=== PATIENT | male | born 1965 | race Caucasian/White ===

== ENCOUNTER 2016-10-12 19:34 | Observation (INO) ==
[2016-10-12] MEDS ORDERED: Nitroglycerin 1 INCH/GM PACKET TP ONE (20:54)
--- NOTE | 2016-10-12 20:58 | Emergency Department Note ---
Disposition Clinical Impression: Angina at rest Disposition: Admitted As Inpatient Condition: Good Referrals: John Moran MD [Primary Care Provider] - Forms: ED Satisfaction Letter Time of Disposition: 21:42 Chest Pain HPI - General Chief Complaint: ED Chest Pain Stated Complaint: chest pain Time Seen by Provider: 10/12/16 20:48 Source: patient Limitations: no limitations Vital Signs Reviewed: Yes Nursing Notes Reviewed: Yes - History of Present Illness HPI Narrative: Patient complains of intermittent chest discomfort since yesterday. Patient lower substernal without radiation. No exacerbating factors. Alleviated temporarily by nitroglycerin. Associated nausea and shortness of breath. He has a history of coronary artery disease-7 stents deployed in the past. Most recently he had 3 stents placed at [facility] 2 months ago Pt complaint: chest pain Onset (ago): day(s) Duration: intermittent Onset: during rest Pain Location: substernal Severity: moderate Severity scale (1-10): 5 Quality: aching Pain Radiation: none Improves with: nitroglycerin Worsens with: nothing Associated symptoms: Reports: nausea, dyspnea Treatments prior to arrival chest pain: aspirin, nitroglycerin - Related Data On Oral Contraceptives: No Home Medications Medication Instructions Recorded Confirmed Aspirin Enteric Coated [Aspirin EC] 81 mg PO DAILY 08/11/15 07/15/16 Gabapentin [Neurontin] 300 mg PO TID 08/11/15 07/15/16 Nitroglycerin 0.4 mg SL Q5MIN PRN 08/11/15 07/15/16 Omeprazole [PriLOSEC] 20 mg PO DAILY 08/11/15 07/15/16 Finasteride [Proscar] 5 mg PO DAILY 09/29/15 07/15/16 Fluticasone/Salmeterol [Advair 1 puff IH BID 09/29/15 07/15/16 500-50 Diskus] Hydrochlorothiazide 50 mg PO BID 09/29/15 07/15/16 Lisinopril [Zestril] 40 mg PO BID 09/29/15 07/15/16 Albuterol Sulfate [Ventolin Hfa] 2 puff IH Q4-6H PRN 07/15/16 07/15/16 Amlodipine Besylate 10 mg PO DAILY 07/15/16 07/15/16 Buprenorphine HCl/Naloxone HCl 1 each SL DAILY 07/15/16 07/15/16 [Suboxone 8 mg-2 mg Sl Film] Duloxetine HCl [Cymbalta] 60 mg PO BID 07/15/16 07/15/16 Erythromycin Base [Erythromycin] 500 mg PO BID MDD x10 days 07/15/16 07/15/16 Metoprolol [Lopressor] 100 mg PO BID 07/15/16 07/15/16 Prazosin HCl [Minipress] 10 mg PO DAILY 07/15/16 07/15/16 Rosuvastatin [Crestor] 40 mg PO HS 07/15/16 07/15/16 Allergies Allergy/AdvReac Type Severity Reaction Status Date / Time chlorthalidone Allergy Unknown Unknown Verified 08/11/15 12:52 infliximab [From Remicade] Allergy Unknown Unknown Verified 08/11/15 12:51 All systems ED: reviewed and negative except as stated. Constitutional: Reports: as per HPI Eyes: Reports: as per HPI ENT ED: Reports: as per HPI Cardiovascular: Reports: chest pain Respiratory: Reports: dyspnea Gastrointestinal: Reports: nausea Genitourinary: Reports: as per HPI Musculoskeletal: Reports: as per HPI Integumentary: Reports: as per HPI Neurological: Reports: as per HPI Psychiatric: Reports: as per HPI Endocrine: Reports: as per HPI Hematological/Lymphatic: Reports: as per HPI Allergic/Immunologic: Reports: as per HPI Chest Pain PMH - Past Medical History Medical history: Reports: coronary artery disease, myocardial infarction Surgical history: Reports: angioplasty/stent (2, then repeated in both vessels) Psychiatric history: Reports: no psych history Prior Cardiac Testing/Procedures: Stenting - Social History Smoking Status: Current every day smoker Alcohol use: Reports: occasionally Drug use: Reports: none Physical Exam - General Limitations: no limitations General appearance: alert, in no apparent distress - Head Head exam: atraumatic - Eye Eye exam: Present: normal appearance - ENT ENT exam: normal exam - Neck Neck exam: Present: normal inspection - Chest Chest inspection: Present: normal inspection, symmetric chest wall rise - Respiratory Respiratory exam: Present: normal lung sounds bilaterally - Cardiovascular Cardiovascular exam: Present: regular rate, normal rhythm, normal heart sounds - Abdominal Exam Abdominal exam: Present: soft, Non-Tender - Rectal Exam Rectal exam: Present: deferred - Extremities Exam Extremities exam: Present: normal inspection - Neurological Exam Neurological exam: Present: alert, oriented X3, CN II-XII intact - Psychiatric Psychiatric exam: Present: normal affect, normal mood - Skin Skin exam: Present: warm, dry, intact Course Course Narrative: Patient presents with intermittent chest discomfort since yesterday. He has a known history of coronary artery disease. He does have chest pain so I will apply some nitroglycerin paste. Cardiac workup initiated - Reevaluation(s) Reevaluation #1: Test results discussed with patient and family. Admission to the medicine service requested. Vital Signs Temperature 98.2 F 10/12/16 19:55 Pulse Rate 72 10/12/16 19:55 Respiratory Rate 18 10/12/16 19:55 Blood Pressure 102/62 10/12/16 19:55 O2 Sat by Pulse Oximetry 97 10/12/16 19:55 Temperature 98.2 F 10/12/16 19:55 Pulse Rate 61 10/12/16 21:29 Respiratory Rate 16 10/12/16 21:29 Blood Pressure 115/61 10/12/16 21:29 O2 Sat by Pulse Oximetry 98 10/12/16 21:29 Oxygen Delivery Oxygen Delivery Room Air Chest Pain - Medical Records Medical records reviewed: Yes I reviewed the patient's medical records. Request for patient's cardiac catheter report from [facility] - Lab Data Lab results reviewed: Yes I reviewed the patient's lab results. Result diagrams: 10/12/16 21:07 10/12/16 21:07 Lab Results 10/12/16 10/12/16 10/12/16 Range/Units 21:07 21:07 21:07 WBC 11.0 (4.3-11.1) K/mcL RBC 3.62 L (4.19-5.50) M/mcL Hgb 11.8 L (12.9-16.9) g/dL Hct 34.9 L (37.5-50.1) % MCV 96.4 (83.0-100.0) fL MCH 32.6 (28.0-33.3) pg MCHC 33.8 (31.6-35.5) g/dL RDW 14.9 H (11.5-14.5) % Plt Count 207 (140-400) K/mcL MPV 9.6 (9.4-12.4) fL Immature Gran % 2.1 (0-4) % Seg Neutrophils % 64.0 % Lymphocytes % 19.1 % Monocytes % 10.3 % Eosinophils % 4.1 % Basophils % 0.4 % Neutrophils # 7.0 (1.6-8.9) K/mcL Lymphocytes # 2.1 (0.6-4.6) K/mcL Monocytes # 1.1 (0.0-1.3) K/mcL Eosinophils # 0.5 (0.0-0.6) K/mcL Basophils # 0.0 (0.0-0.2) K/mcL Immature Plt Fraction 2.8 (1.1-6.1) % PT 11.3 (9.4-12.1) Seconds INR 1.0 APTT 37.6 H (26.0-36.0) Seconds Sodium 141 (136-145) mEq/L Potassium 4.5 (3.5-4.5) mEq/L Chloride 110 H (98-109) mEq/L Carbon Dioxide 23 (19-29) mEq/L BUN 22 (8-26) mg/dL Creatinine 1.09 (0.72-1.25) mg/dL Est GFR ( Amer) > 60 (> 60) Est GFR (Non-Af Amer) > 60 (> 60) BUN/Creatinine Ratio 20 (6-26) Glucose 99 (70-99) mg/dL Calculated Osmolality 295 (280-300) Calcium 8.8 (8.6-10.8) mg/dL Total Bilirubin 0.2 (0.2-1.2) mg/dL AST 16 (5-34) Units/L ALT 31 (0-55) Units/L Alkaline Phosphatase 123 (38-126) Units/L Troponin I (0-0.03) ng/mL Serum Total Protein 6.8 (6.0-8.3) g/dL Albumin 3.6 (3.5-5.0) g/dL Globulin 3.2 (2.4-3.5) g/dL Albumin/Globulin Ratio 1.1 (1.1-2.2) 10/12/16 Range/Units 21:07 WBC (4.3-11.1) K/mcL RBC (4.19-5.50) M/mcL Hgb (12.9-16.9) g/dL Hct (37.5-50.1) % MCV (83.0-100.0) fL MCH (28.0-33.3) pg MCHC (31.6-35.5) g/dL RDW (11.5-14.5) % Plt Count (140-400) K/mcL MPV (9.4-12.4) fL Immature Gran % (0-4) % Seg Neutrophils % % Lymphocytes % % Monocytes % % Eosinophils % % Basophils % % Neutrophils # (1.6-8.9) K/mcL Lymphocytes # (0.6-4.6) K/mcL Monocytes # (0.0-1.3) K/mcL Eosinophils # (0.0-0.6) K/mcL Basophils # (0.0-0.2) K/mcL Immature Plt Fraction (1.1-6.1) % PT (9.4-12.1) Seconds INR APTT (26.0-36.0) Seconds Sodium (136-145) mEq/L Potassium (3.5-4.5) mEq/L Chloride (98-109) mEq/L Carbon Dioxide (19-29) mEq/L BUN (8-26) mg/dL Creatinine (0.72-1.25) mg/dL Est GFR ( Amer) (> 60) Est GFR (Non-Af Amer) (> 60) BUN/Creatinine Ratio (6-26) Glucose (70-99) mg/dL Calculated Osmolality (280-300) Calcium (8.6-10.8) mg/dL Total Bilirubin (0.2-1.2) mg/dL AST (5-34) Units/L ALT (0-55) Units/L Alkaline Phosphatase (38-126) Units/L Troponin I 0.01 (0-0.03) ng/mL Serum Total Protein (6.0-8.3) g/dL Albumin (3.5-5.0) g/dL Globulin (2.4-3.5) g/dL Albumin/Globulin Ratio (1.1-2.2) - Radiology Data Radiology results reviewed: Yes I reviewed the patient's radiology results. - EKG Data EKG attestation: Yes I reviewed and interpreted this EKG. EKG results narrative: Normal sinus rhythm 70 beats per minute FL 187 QRS 101 QT/QTC 362/382. Mild ST segment depression in the inferior and lateral leads. No acute changes from study dated 07/15/16
[2016-10-12 21:14] LABS: Basophils % 0.4 %; Eosinophils % 4.1 %; Hematocrit 34.9 % (37.5-50.1); Hemoglobin 11.8 g/dL (12.9-16.9); Immature Granulocytes % 2.1 % (0-4); Immature Platelets 2.8 % (1.1-6.1); Lymphocytes % 19.1 %; Mean Corpuscular HGB Conc 33.8 g/dL (31.6-35.5); Mean Corpuscular Hemoglobin 32.6 pg (28.0-33.3); Mean Corpuscular Volume 96.4 fL (83.0-100.0); Mean Platelet Volume 9.6 fL (9.4-12.4); Monocytes % 10.3 %; Platelet Count 207 K/mcL (140-400); Red Blood Count 3.62 M/mcL (4.19-5.50); Red Cell Distribution Width 14.9 % (11.5-14.5)
[2016-10-12 21:15] LABS: Eosinophils # 0.5 K/mcL (0.0-0.6); Lymphocytes # 2.1 K/mcL (0.6-4.6); Monocytes # 1.1 K/mcL (0.0-1.3)
[2016-10-12 21:26] LABS: Prothrombin Time 11.3 Seconds (9.4-12.1)
[2016-10-12 21:28] LABS: Activated Partial Thrombo Time 37.6 Seconds (26.0-36.0)
[2016-10-12 21:30] LABS: Alanine Aminotransferase 31 Units/L (0-55); Albumin 3.6 g/dL (3.5-5.0); Albumin/Globulin Ratio 1.1 (1.1-2.2); Alkaline Phosphatase 123 Units/L (38-126); Aspartate Amino Transferase 16 Units/L (5-34); BUN/Creatinine Ratio 20 (6-26); Bilirubin,Total 0.2 mg/dL (0.2-1.2); Blood Urea Nitrogen 22 mg/dL (8-26); Calcium 8.8 mg/dL (8.6-10.8); Carbon Dioxide 23 mEq/L (19-29); Chloride 110 mEq/L (98-109); Globulin 3.2 g/dL (2.4-3.5); Glucose 99 mg/dL (70-99); Osmolality,Calculated 295 (280-300); Potassium 4.5 mEq/L (3.5-4.5); Sodium 141 mEq/L (136-145); Total Protein 6.8 g/dL (6.0-8.3); eGFR For African Americans > 60 (> 60); eGFR For Non-African Americans > 60 (> 60)
[2016-10-12] MEDS ORDERED: Ondansetron 4 MG/2 ML VIAL IVP PRN (23:40)
[2016-10-12] MEDS ORDERED: Acetaminophen 325 MG TABLET PO PRN (23:40)
[2016-10-12] MEDS ORDERED: *HR* Morphine 2 MG/ML SYRINGE IVP PRN (23:40)
[2016-10-12] MEDS ORDERED: Naloxone 0.4 MG/ML INJ IVP PRN (23:40)
[2016-10-12] MEDS ORDERED: 0.9 % Sodium Chloride 1,000 ML IVC SCH (23:45)
[2016-10-13 01:47] LABS: Basophils % 0.4 %; Eosinophils # 0.4 K/mcL (0.0-0.6); Eosinophils % 3.6 %; Hematocrit 31.9 % (37.5-50.1); Hemoglobin 10.7 g/dL (12.9-16.9); Immature Granulocytes % 1.4 % (0-4); Immature Platelets 2.4 % (1.1-6.1); Lymphocytes # 2.1 K/mcL (0.6-4.6); Lymphocytes % 18.9 %; Mean Corpuscular HGB Conc 33.5 g/dL (31.6-35.5); Mean Corpuscular Hemoglobin 32.4 pg (28.0-33.3); Mean Corpuscular Volume 96.7 fL (83.0-100.0); Mean Platelet Volume 9.7 fL (9.4-12.4); Monocytes % 8.5 %; Neutrophils # 7.6 K/mcL (1.6-8.9); Platelet Count 188 K/mcL (140-400); Red Cell Distribution Width 14.7 % (11.5-14.5); Segmented Neutrophils % 67.2 %
[2016-10-13 01:53] LABS: INR 1.1; Prothrombin Time 11.6 Seconds (9.4-12.1)
[2016-10-13 01:56] LABS: Activated Partial Thrombo Time 35.7 Seconds (26.0-36.0)
[2016-10-13 02:06] LABS: BUN/Creatinine Ratio 21 (6-26); Blood Urea Nitrogen 22 mg/dL (8-26); Calcium 8.8 mg/dL (8.6-10.8); Carbon Dioxide 22 mEq/L (19-29); Chloride 110 mEq/L (98-109); Chol/HDL Ratio 3.8 (0-4.9); Cholesterol 90 mg/dL (< 200); Glucose 117 mg/dL (70-99); HDL Cholesterol 24 mg/dL (40-59); LDL Cholesterol,Calculated 46 mg/dL (0-99); Magnesium 1.5 mg/dL (1.6-2.6); Osmolality,Calculated 294 (280-300); Potassium 3.9 mEq/L (3.5-4.5); Sodium 140 mEq/L (136-145); Triglycerides 102 mg/dL (< 150); eGFR For African Americans > 60 (> 60); eGFR For Non-African Americans > 60 (> 60)
--- NOTE | 2016-10-13 02:31 | Internal Med History&Physical ---
Date of Encounter: 10/12/16 Time of Encounter: 23:00 Assessment and Plan (1) Unstable angina Current visit: Yes Status: Acute Chest pain now has resolved. We will continue with nitroglycerin paste. Monitor patient on telemetry. Transient troponin. Consult cardiology in the morning. He has an high risk for morbidity and mortality and complications due to need for invasive cardiology testing with IV contrast dye. We will start IV fluids to medicate the risk to his kidney function. (2) Coronary artery disease Current visit: Yes Status: Acute We will treat patient with aspirin and statin and beta cassi. He has a history of 7 stents placed, the last 3 or within the last 6 months. Continue Plavix. Qualifiers: Coronary Disease-Associated Artery/Lesion type: [place] artery [place] vs. transplanted heart: [place] heart Associated angina: with unstable angina Qualified Code(s): I25.110 - Atherosclerotic heart disease of [place] coronary artery with unstable angina pectoris (3) Essential hypertension Current visit: Yes Status: Acute We will treat the patient for his home regimen of amlodipine and metoprolol lisinopril and HCTZ. (4) Hyperlipidemia Current visit: Yes Status: Acute Check lipid panel. Continue with statin. Qualifiers: Hyperlipidemia type: unspecified Qualified Code(s): E78.5 - Hyperlipidemia , unspecified (5) Tobacco abuse Current visit: No Status: Chronic I have advised smoking cessation. Internal Medicine - H&P: HPI Chief complaint: Chest pain Admitted From: Emergency Dept Plans for Post Hospital Care: Home History of present illness: Mr. Dempsey is a 51 year old male with past medical history significant for coronary artery disease presented to the hospital for severe sharp midsternal chest pain that started yesterday. Pain started at rest and improved with nitroglycerin. His EKG showed nonspecific ST changes and troponin was negative > A 10 point review of systems was pertinent for chest pain, chronic shortness of breath, psoriasis rash. Family history positive for for premature coronary artery is diseased and the patient's father who had CABG at age 41. Social history patient smokes 7 cigarettes a day and denies alcohol and drug use. Past Med Surg Social Fam HX - Past Medical History Medical history: coronary artery disease, myocardial infarction Psychiatric history: no psych history - Past Surgical History Surgical History: angioplasty/stent - Social History Smoking Status: Current every day smoker Packs per day: 0.5 Smokeless Tobacco Status: No Alcohol use: occasionally Drug use: none - Family History Mother Living Status: Still Living Hx Family Cardiac Disorders: No Hx Family Respiratory Disorders: Yes (COPD) Hx Family Cancer: No Hx Family GI Disorders: No Hx Family Genitourinary Disorders: No Hx Family Endocrine Disorder: Yes (DM) Hx Family Musculoskeletal Disorders: No Hx Family Neuromuscular Disorders: No Hx Family Neurologic Disorders: No Hx Family HEENT Disorders: No Hx Family Autoimmune Disorders: No Hx Family Reproductive Disorders: No Hx Family Psychosocial Disorders: No Hx Family Medical Disorders: No Father Living Status: Age at : 42 Cause of : [place] Hx Family Cardiac Disorders: Yes ([place], CABG) Hx Family Respiratory Disorders: No Hx Family Cancer: No Hx Family GI Disorders: No Hx Family Genitourinary Disorders: No Hx Family Endocrine Disorder: No Hx Family Musculoskeletal Disorders: No Hx Family Neuromuscular Disorders: No Hx Family Neurologic Disorders: No Hx Family HEENT Disorders: No Hx Family Autoimmune Disorders: No Hx Family Reproductive Disorders: No Hx Family Psychosocial Disorders: No Hx Family Medical Disorders: No Internal Medicine - H&P: Meds Aspirin Enteric Coated [Aspirin EC] 81 mg PO DAILY 08/11/15 [History] Nitroglycerin 0.4 mg SL Q5MIN PRN 08/11/15 [History] Omeprazole [PriLOSEC] 20 mg PO DAILY 08/11/15 [History] Finasteride [Proscar] 5 mg PO DAILY 09/29/15 [History] Fluticasone/Salmeterol [Advair 500-50 Diskus] 1 puff IH BID 09/29/15 [History] Hydrochlorothiazide 50 mg PO BID 09/29/15 [History] Lisinopril [Zestril] 40 mg PO BID 09/29/15 [History] Albuterol Sulfate [Ventolin Hfa] 2 puff IH Q4-6H PRN 07/15/16 [History] Amlodipine Besylate 10 mg PO DAILY 07/15/16 [History] Duloxetine HCl [Cymbalta] 60 mg PO BID 07/15/16 [History] Metoprolol [Lopressor] 100 mg PO BID 07/15/16 [History] Rosuvastatin [Crestor] 40 mg PO HS 07/15/16 [History] Clopidogrel [Plavix] 75 mg PO DAILY 10/12/16 [History] Diclofenac Sodium [Voltaren] 1 appl TP QID PRN 10/12/16 [History] Gabapentin [Neurontin] 400 mg PO BID 10/12/16 [History] Terazosin HCl 10 mg PO HS 10/12/16 [History] Allergies chlorthalidone Allergy (Unknown, Verified 08/11/15 12:52) Unknown infliximab [From Remicade] Allergy (Unknown, Verified 08/11/15 12:51) Unknown All Systems PM: A 10-system review of systems was performed and is negative for pertinent findings except as documented above in the HPI. - Constitutional Vitals: Temp Pulse Resp BP Pulse Ox 97.8 F 53 18 118/68 98 10/12/16 22:58 10/12/16 22:58 10/12/16 22:58 10/12/16 22:58 10/12/16 22:58 - Eye Eye exam: Present: PERRL, conjuntiva pink, sclera anicteric Pupils: Present: PERRL - Neck Neck exam general surgery: Present: supple, trachea midline. Absent: lymphadenopathy - Respiratory Respiratory exam: Present: CTAB. Absent: accessory muscle use, rales, rhonchi, wheezes - Cardiovascular Cardiovascular exam: Present: RRR, +S1, +S2. Absent: diastolic murmur, gallop, rubs, systolic murmur - GI/Abdominal GI/Abdominal exam: Present: normal bowel sounds, soft, no peritoneal signs. Absent: distended, tenderness - Extremities Exam Extremities exam: Present: warm, radial pulses palpable and symetrical. Absent : calf tenderness, cyanotic, pedal edema - Neurological Exam Neurological exam: Present: CN II-XII intact, oriented X3, no focal deficits. Absent: pronater drift, facial droop, speech deficit - Skin Skin exam: Present: dry, intact Internal Med - H&P Results - Labs CBC & Chem 7: 10/13/16 01:27 10/13/16 01:27 Labs: Short CBC 10/13/16 Range/Units 01:27 WBC 11.3 H (4.3-11.1) K/mcL Hgb 10.7 L (12.9-16.9) g/dL Hct 31.9 L (37.5-50.1) % Plt Count 188 (140-400) K/mcL Neutrophils # 7.6 (1.6-8.9) K/mcL BMP 10/13/16 01:27 Sodium 140 Potassium 3.9 Chloride 110 H Carbon Dioxide 22 BUN 22 Creatinine 1.07 Glucose 117 H Calcium 8.8 Cardiac Enzymes 10/13/16 Range/Units 01:27 Troponin I 0.00 (0-0.03) ng/mL
[2016-10-13] MEDS ORDERED: Nitroglycerin 0.4 MG TAB.SUBL SL PRN (02:57)
[2016-10-13] MEDS ORDERED: (Diclofenac Sodium [Voltaren] 1 APPL) TP PRN (02:57)
[2016-10-13] MEDS: Nitroglycerin 1 INCH/GM PACKET TP SCH ×2 (05:45→13:02)
[2016-10-13] MEDS ORDERED: Lisinopril 20 MG TABLET PO SCH (09:00)
[2016-10-13] MEDS ORDERED: Finasteride 5 MG TABLET PO SCH (09:00)
[2016-10-13] MEDS ORDERED: Metoprolol 100 MG TABLET PO SCH (09:00)
[2016-10-13] MEDS ORDERED: Aspirin Enteric Coated 81 MG Tablet PO SCH (09:00)
[2016-10-13] MEDS ORDERED: Gabapentin 400 MG CAPSULE PO SCH (09:00)
[2016-10-13] MEDS ORDERED: hydroCHLOROthiazide 25 MG TABLET PO SCH (09:00)
[2016-10-13] MEDS ORDERED: amLODIPine 5 MG TABLET PO SCH (09:00)
--- NOTE | 2016-10-13 09:23 | Cardiology Consult Note ---
<Blayne Watts - Last Filed: 10/13/16 09:14> Date of Encounter: 10/13/16 Time of Encounter: 09:14 Assessment and Plan (1) Chest pain Status: Acute Chest pain now resolved after NTG patch. Last LHC at [facility] revealed 80% stenosis and he received PTCA and CINDA x 3. There was mild diffuse disease in the LAD. Troponin negative x 3, EKG unchanged from previous. Shows NSR, HR 70 bpm. I discussed proceeding with stress test for further evaluation and pt declines. He would like to continue to monitor symptoms and continue medical management. Start imdur 30 mg daily. F/u will be made by [facility] in 1-2 weeks. Qualifiers: Ischemic chest pain type: stable angina pectoris Qualified Code(s): I20.8 - Other forms of angina pectoris (2) Coronary artery disease Status: Acute H/o multiple PCI. Most recently 3 CINDA to RCA in June 2016. Continue asa, plavix, statin, bb. Add imdur. Aggressive risk factor modification. Smoking cessation. Healthy cardiac exercise and diet. Qualifiers: Coronary Disease-Associated Artery/Lesion type: [place] artery [place] vs. transplanted heart: [place] heart Associated angina: with unstable angina Qualified Code(s): I25.110 - Atherosclerotic heart disease of [place] coronary artery with unstable angina pectoris (3) Tobacco abuse Status: Chronic Smoking cessation discussed. He is trying to quit. (4) Essential hypertension Status: Acute B/p controlled. Continue current medications. Discussion w patient/family: The assessment and plan as outlined above was discussed with the patient and/or family members who expressed understanding and agreement. All questions were answered. Thank you for involving us in the care of your patient. Please call with any questions. History of Present Illness Consult date: 10/13/16 Requesting physician: Rogelio Castro Consult reason: Chest pain Chief complaint: Chest pain History of present illness: Mr. Dempsey is a 51 year old male who presented with chest pain starting two days ago when he woke up. He reports taking two nitroglycerine and three baby aspirin with relief. The next morning he woke up again with mid-sternal non- radiating pain. His pain was relieved with two NTG and two baby aspirin. He presented to the ED and was started on NTG patch with no recurrent pain. His pain did not increase with exertion. Pain was similar to when he had his [place] last year although at that time he had jaw pain and SOB with activity. He denies symptoms with activity now. Troponins are negative x 3. EKG shows no acute changes from previous EKG. Past medical history includes CAD s/p multiple PCI, hypertension, and tobacco use. Last LHC at [facility] on 07/15/16 revealed 80% stenosis and he received PTCA and CINDA x 3. There was mild diffuse disease in the LAD. He denies missing any medications. He last followed with a catering barista in [place]. Past Med Surg Social Fam HX - Past Medical History Medical history: coronary artery disease, hypertension, myocardial infarction Psychiatric history: no psych history - Past Surgical History Surgical History: angioplasty/stent - Social History Smoking Status: Current every day smoker Packs per day: 0.5 Smokeless Tobacco Status: No Alcohol use: occasionally Drug use: none - Family History Mother Living Status: Still Living Hx Family Cardiac Disorders: No Hx Family Respiratory Disorders: Yes (COPD) Hx Family Cancer: No Hx Family GI Disorders: No Hx Family Genitourinary Disorders: No Hx Family Endocrine Disorder: Yes (DM) Hx Family Musculoskeletal Disorders: No Hx Family Neuromuscular Disorders: No Hx Family Neurologic Disorders: No Hx Family HEENT Disorders: No Hx Family Autoimmune Disorders: No Hx Family Reproductive Disorders: No Hx Family Psychosocial Disorders: No Hx Family Medical Disorders: No Father Living Status: Age at : 42 Cause of : [place] Hx Family Cardiac Disorders: Yes ([place], CABG) Hx Family Respiratory Disorders: No Hx Family Cancer: No Hx Family GI Disorders: No Hx Family Genitourinary Disorders: No Hx Family Endocrine Disorder: No Hx Family Musculoskeletal Disorders: No Hx Family Neuromuscular Disorders: No Hx Family Neurologic Disorders: No Hx Family HEENT Disorders: No Hx Family Autoimmune Disorders: No Hx Family Reproductive Disorders: No Hx Family Psychosocial Disorders: No Hx Family Medical Disorders: No Medications and Allergies Aspirin Enteric Coated [Aspirin EC] 81 mg PO DAILY 08/11/15 [History] Nitroglycerin 0.4 mg SL Q5MIN PRN 08/11/15 [History] Omeprazole [PriLOSEC] 20 mg PO DAILY 08/11/15 [History] Finasteride [Proscar] 5 mg PO DAILY 09/29/15 [History] Fluticasone/Salmeterol [Advair 500-50 Diskus] 1 puff IH BID 09/29/15 [History] Hydrochlorothiazide 50 mg PO BID 09/29/15 [History] Lisinopril [Zestril] 40 mg PO BID 09/29/15 [History] Albuterol Sulfate [Ventolin Hfa] 2 puff IH Q4-6H PRN 07/15/16 [History] Amlodipine Besylate 10 mg PO DAILY 07/15/16 [History] Duloxetine HCl [Cymbalta] 60 mg PO BID 07/15/16 [History] Metoprolol [Lopressor] 100 mg PO BID 07/15/16 [History] Rosuvastatin [Crestor] 40 mg PO HS 07/15/16 [History] Clopidogrel [Plavix] 75 mg PO DAILY 10/12/16 [History] Diclofenac Sodium [Voltaren] 1 appl TP QID PRN 10/12/16 [History] Gabapentin [Neurontin] 400 mg PO BID 10/12/16 [History] Terazosin HCl 10 mg PO HS 10/12/16 [History] Isosorbide MONOnitrate (24 HR) [Imdur] 30 mg PO DAILY #30 tab.er.24h 10/13/16 [ Rx] Magnesium Oxide [Mag-Ox] 400 mg PO BID #14 tablet 10/13/16 [Rx] Allergies chlorthalidone Allergy (Unknown, Verified 08/11/15 12:52) Unknown infliximab [From Remicade] Allergy (Unknown, Verified 08/11/15 12:51) Unknown All Systems Review: A 10-system review of systems was performed and is negative for pertinent findings except as documented above in the HPI. Physical Examination Vital Signs, Last 4 Hours Temp Pulse Resp BP Pulse Ox 10/13/16 08:11 16 99 10/13/16 07:12 98.0 F 60 17 112/72 97 General: Conversant, No Apparent Distress HEENT: Atraumatic, Normocephaly, Mucus Membranes Moist Neck: No JVD, Normal carotid pulses Cardiac: Reg Rate and Rhythm, Normal S1 and S2, No Murmur Lungs: Normal Breath Sounds, No Wheeze, Rales, Rhonchi Neuro: Alert and responsive, No focal deficits noted Abdomen: Soft, Non-Tender Skin: No rashes noted on visualized skin Musculoskeletal: No Chest Wall Tenderness Extremities: No Clubbing, No Cyanosis, No Edema, Normal Pulses Results 10/13/16 01:27 10/13/16 01:27 Lab Results 10/13/16 10/13/16 10/13/16 01:27 01:27 01:27 WBC 11.3 H Hgb 10.7 L Hct 31.9 L Plt Count 188 INR 1.1 APTT 35.7 Sodium Potassium Chloride Carbon Dioxide BUN Creatinine Glucose Calcium Magnesium Troponin I 0.00 B-Natriuretic Peptide 10/13/16 10/13/16 01:27 01:27 WBC Hgb Hct Plt Count INR APTT Sodium 140 Potassium 3.9 Chloride 110 H Carbon Dioxide 22 BUN 22 Creatinine 1.07 Glucose 117 H Calcium 8.8 Magnesium 1.5 L Troponin I B-Natriuretic Peptide 100 - EKG Interpretation EKG results cardiology: personally reviewed (SR, HR [address] changes. Non-specific ST wave changes similair to previous EKG.) Consult Discharge Plan - Plan Instructions: Isosorbide Mononitrate (By mouth), Magnesium (By mouth), Chest Pain (DC), Chronic Hypertension (DC) Referrals: Winsome Lugo CNP [Advanced Practice Nurse] - 10/19/16 2:30 pm Prescriptions: Isosorbide MONOnitrate (24 HR) [Imdur] 30 mg PO DAILY #30 tab.er.24h Magnesium Oxide [Mag-Ox] 400 mg PO BID #14 tablet <Karen Chaudhry - Last Filed: 10/13/16 14:12> Date of Encounter: 10/13/16 Assessment and Plan Discussion w patient/family: The assessment and plan as outlined above was discussed with the patient and/or family members who expressed understanding and agreement. All questions were answered. Thank you for involving us in the care of your patient. Please call with any questions. History of Present Illness History of present illness: Mr. Dempsey is a 51 year old male All Systems Review: A 10-system review of systems was performed and is negative for pertinent findings except as documented above in the HPI. Physical Examination Vital Signs, Last 4 Hours Temp Pulse Resp BP Pulse Ox 10/13/16 11:28 98.1 F 73 16 135/78 98 10/13/16 11:07 16 99 10/13/16 10:46 99 Results 10/13/16 01:27 10/13/16 01:27 Lab Results 10/13/16 10/13/16 10/13/16 01:27 01:27 01:27 WBC 11.3 H Hgb 10.7 L Hct 31.9 L Plt Count 188 INR 1.1 APTT 35.7 Sodium Potassium Chloride Carbon Dioxide BUN Creatinine Glucose Calcium Magnesium Troponin I 0.00 B-Natriuretic Peptide 10/13/16 10/13/16 10/13/16 01:27 01:27 08:54 WBC Hgb Hct Plt Count INR APTT Sodium 140 Potassium 3.9 Chloride 110 H Carbon Dioxide 22 BUN 22 Creatinine 1.07 Glucose 117 H Calcium 8.8 Magnesium 1.5 L Troponin I 0.00 B-Natriuretic Peptide 100 - Attending Attestation I examined this patient and my medical decision-making was reviewed with the CONSULTING IT ARCHITECT/PA/Advanced Practice Nurse/Resident Physician. I agree with the documented findings, disposition and treatment plan. Mr. Dempsey presents with 2 episodes of chest pain, atypical in quality. His troponin is negative and ECG without new changes. He denies missing any doses of aspirin, plavix with recent stenting at [place]. Both symptoms occurred at nighttime when laying flat. I am suspicious for a GI etiology. I have recommended starting PPI especially since he is now on DAPT. We will add on Imdur as well. He will follow up as an outpatient. No further cardiac testing is warranted. We will sign off. He would like to follow up with us at [facility].
[2016-10-13] MEDS: Isosorbide MONOnitrate (24 HR) 30 MG TAB.ER.24H PO SCH ×2 (09:37→13:02)
[2016-10-13] MEDS ORDERED: Budesonide/Formoterol 160/4.5 MDI IH SCH (10:00)
[2016-10-13] MEDS ORDERED: Magnesium Oxide 400 MG TABLET PO SCH (11:15)
[2016-10-13 11:29] VITALS: BP 135/78
--- NOTE | 2016-10-13 11:56 | Discharge Summary ---
Date of Encounter: 10/13/16 Time of Encounter: 11:00 - Discharge Diagnosis (1) Chest pain Priority: Primary Status: Acute Qualifiers: Ischemic chest pain type: stable angina pectoris Qualified Code(s): I20.8 - Other forms of angina pectoris (2) Coronary artery disease Priority: Primary Status: Acute Qualifiers: Coronary Disease-Associated Artery/Lesion type: [place] artery [place] vs. transplanted heart: [place] heart Associated angina: with unstable angina Qualified Code(s): I25.110 - Atherosclerotic heart disease of [place] coronary artery with unstable angina pectoris (3) Essential hypertension Priority: Secondary Status: Acute (4) Unstable angina Priority: Primary Status: Acute (5) Tobacco abuse Priority: Secondary Status: Chronic - Discharge Medications Prescriptions: Isosorbide MONOnitrate (24 HR) [Imdur] 30 mg PO DAILY #30 tab.er.24h Magnesium Oxide [Mag-Ox] 400 mg PO BID #14 tablet Home Medications: Aspirin Enteric Coated [Aspirin EC] 81 mg PO DAILY 08/11/15 [History] Nitroglycerin 0.4 mg SL Q5MIN PRN 08/11/15 [History] Omeprazole [PriLOSEC] 20 mg PO DAILY 08/11/15 [History] Finasteride [Proscar] 5 mg PO DAILY 09/29/15 [History] Fluticasone/Salmeterol [Advair 500-50 Diskus] 1 puff IH BID 09/29/15 [History] Hydrochlorothiazide 50 mg PO BID 09/29/15 [History] Lisinopril [Zestril] 40 mg PO BID 09/29/15 [History] Albuterol Sulfate [Ventolin Hfa] 2 puff IH Q4-6H PRN 07/15/16 [History] Amlodipine Besylate 10 mg PO DAILY 07/15/16 [History] Duloxetine HCl [Cymbalta] 60 mg PO BID 07/15/16 [History] Metoprolol [Lopressor] 100 mg PO BID 07/15/16 [History] Rosuvastatin [Crestor] 40 mg PO HS 07/15/16 [History] Clopidogrel [Plavix] 75 mg PO DAILY 10/12/16 [History] Diclofenac Sodium [Voltaren] 1 appl TP QID PRN 10/12/16 [History] Gabapentin [Neurontin] 400 mg PO BID 10/12/16 [History] Terazosin HCl 10 mg PO HS 10/12/16 [History] Isosorbide MONOnitrate (24 HR) [Imdur] 30 mg PO DAILY #30 tab.er.24h 10/13/16 [ Rx] Magnesium Oxide [Mag-Ox] 400 mg PO BID #14 tablet 10/13/16 [Rx] Allergies/Adverse Reactions: Allergies chlorthalidone Allergy (Unknown, Verified 08/11/15 12:52) Unknown infliximab [From Remicade] Allergy (Unknown, Verified 08/11/15 12:51) Unknown - Notes to Outpatient Provider Imdur 30mg po qd added to home med list. Low Mg level (1.5), will give Mg Oxide 400mg po bid x 7 days. Date of admission: 10/12/16 22:03 Primary care physician: Jd Urban Consults: 10/13/16 02:40 Consult to Cardiology [CONS] Routine Comment: Consulting Provider: [facility] [place] Reason for Consult: Unstable angina Time Notified: 06:48 Call Completed: Yes Discharging clinician: Gino Arteaga Anticipated date of discharge: 10/13/16 - Patient Status Disposition: Home, Self-Care Condition: Good Functional capacity at discharge: independent ambulation Overall status at discharge: patient is back to baseline - Discharge Instructions Follow Up With: John Moran MD [Primary Care Provider] - - Diet and Activity Activity: increase activity as tolerated Diet: advance to your usual diet Interval History: Mr. Dempsey is a 51 year old male with past medical history significant for coronary artery disease presented to the hospital for severe sharp midsternal chest pain that started yesterday. Pain started at rest and improved with nitroglycerin. His EKG showed nonspecific ST changes and troponin was negative Hospital course: Mr. Dempsey is a 51 year old male admitted for chest pain. He has past CAD history and had catheterization and stenting 3 months ago. Patient was admitted and put on cardiac monitoring, keep the patient on home medication. His chest pain responded to nitroglycerin patch. 3 sets of troponin negative. EKG unremarkable. Chest x-ray negative. Cardiology consult was called and saw patient. No further tests to do in the hospital. Imdur added to patient's home medication list by cardiology. Patient will discharge home today and follow-up with cardiology in 1-2 weeks. I saw and examined the patient today. He is awake, alert and oriented 3. No further chest pain when I saw him. In no acute distress. Denies cough, nausea , vomiting, calf pain or tenderness. Vitals are stable, heart rate is 73, BP 135/78, RR 16, saturation 98% in room air. Lab shows mild hypo-magnesium, will give magnesium supplement on discharge. Patient is ready to discharge home and to follow-up with PCP and cardiology. Time spent discussing smoking cessation with patient: 3 to 10 minutes - Time Spent with Patient Total time spent providing and/or coordinating discharge services: 40 minutes Greater than 30 minutes - Constitutional Vitals: Temp Pulse Resp BP Pulse Ox 98.1 F 73 16 135/78 98 10/13/16 11:28 10/13/16 11:28 10/13/16 11:28 10/13/16 11:28 10/13/16 11:28 General appearance: Present: A&O X 3, no acute distress, answers questions appropriately - Head Head exam: Present: atraumatic, normocephalic - Eye Eye exam: Present: PERRL, conjuntiva pink, sclera anicteric Pupils: Present: PERRL - Neck Neck exam general surgery: Present: supple, trachea midline. Absent: lymphadenopathy - Respiratory Respiratory exam: Present: CTAB. Absent: accessory muscle use, rales, rhonchi, wheezes - Cardiovascular Cardiovascular exam: Present: RRR, +S1, +S2. Absent: diastolic murmur, gallop, rubs, systolic murmur - GI/Abdominal GI/Abdominal exam: Present: normal bowel sounds, soft, no peritoneal signs. Absent: distended, tenderness - Extremities Exam Extremities exam: Present: warm, radial pulses palpable and symetrical. Absent : calf tenderness, cyanotic, pedal edema - Neurological Exam Neurological exam: Present: CN II-XII intact, oriented X3, no focal deficits. Absent: pronater drift, facial droop, speech deficit - Skin Skin exam: Present: dry, intact
--- NOTE | 2016-10-13 19:57 | Electrocardiograph Report ---
[place] [address] Test Date: 2016-10-12 Pat Name: Blair Dempsey Department: 102 Room: 3B Gender: M [employer]: : 1965 Requested By: Camron Basilio Order Number: [id number] Reading MD: Salomon Lo Measurements Intervals [place] Rate: 70 P: 29 NH: 187 QRS: 29 QRSD: 101 T: 43 QT: 362 QTc: 382 Interpretive Statements SINUS RHYTHM Electronically Signed On 10-13-2016 19:55:49 EST by Salomon Lo
== END 2016-10-13 13:38 | disposition home or self-care (01) ==
LOC: EMEROO 19:34 → 3BNU 19:34 → SUATTDRO 22:03 → 3BNU 22:36
PROVIDERS: ADMIT Internal Medicine; ATTEND Internal Medicine

== ENCOUNTER 2020-10-20 02:00 | Observation (INO) ==
[2020-10-20] MEDS ORDERED: Nitroglycerin 0.4 MG TAB.SUBL SL PRN (02:11)
[2020-10-20 02:38] LABS: Basophils # 0.1 K/mcL (0.0-0.2); Basophils % 0.5 %; Eosinophils # 0.3 K/mcL (0.0-0.6); Eosinophils % 2.9 %; Hematocrit 37.2 % (37.5-50.1); Hemoglobin 12.4 g/dL (12.9-16.9); Immature Granulocytes % 1.4 % (0-4); Lymphocytes # 2.6 K/mcL (0.6-4.6); Lymphocytes % 26.2 %; Mean Corpuscular HGB Conc 33.3 g/dL (31.6-35.5); Mean Corpuscular Hemoglobin 31.4 pg (28.0-33.3); Mean Corpuscular Volume 94.2 fL (83.0-100.0); Mean Platelet Volume 9.3 fL (9.4-12.4); Monocytes # 1.2 K/mcL (0.0-1.3); Monocytes % 12.3 %; Neutrophils # 5.7 K/mcL (1.6-8.9); Platelet Count 176 K/mcL (140-400); Red Blood Count 3.95 M/mcL (4.19-5.50); Red Cell Distribution Width 13.9 % (11.5-14.5); Segmented Neutrophils % 56.7 %; White Blood Count 10.1 K/mcL (4.3-11.1)
[2020-10-20 03:00] LABS: BUN/Creatinine Ratio 18 (6-26); Blood Urea Nitrogen 23 mg/dL (6-20); Calcium 8.7 mg/dL (8.6-10.3); Carbon Dioxide 24 mEq/L (23-29); Chloride 105 mEq/L (98-107); Glucose 177 mg/dL (70-105); Osmolality,Calculated 296 (280-300); Potassium 4.4 mEq/L (3.5-5.1); Sodium 139 mEq/L (136-145); eGFR For African Americans > 60 (> 60); eGFR For Non-African Americans 60 (> 60)
[2020-10-20 03:01] LABS: Troponin I < 0.03 ng/mL (< 0.04)
[2020-10-20] MEDS ORDERED: Naloxone 0.4 MG/ML INJ IVP PRN (05:11)
[2020-10-20] MEDS ORDERED: Ondansetron 4 MG/2 ML VIAL IVP PRN (05:11)
[2020-10-20] MEDS ORDERED: Acetaminophen 325 MG TABLET PO PRN (05:11)
[2020-10-20] MEDS ORDERED: *HR* Heparin 5,000 UNIT/ML VIAL SQ SCH (06:00)
[2020-10-20] MEDS ORDERED: Regadenoson 0.4 MG/5 ML SYRINGE IVP ONE (06:25)
[2020-10-20 08:57] VITALS: BP 96/60
[2020-10-20 11:33] LABS: Estimated Average Glucose 146 mg/dl; Hemoglobin A1C 6.7 %
== END 2020-10-20 15:45 | disposition home or self-care (01) ==
LOC: EMEROOARM 02:00 → 2ANU 02:00
PROVIDERS: ADMIT Internal Medicine; ATTEND Internal Medicine

== ENCOUNTER 2022-02-11 20:11 | Inpatient (IN) ==
[2022-02-11] MEDS ORDERED: cefTRIAXone 1,000 MG in 0.9 % Sodium Chloride 10 ML IVP ONE (20:18)
[2022-02-11] MEDS ORDERED: Iopamidol - 370 500 ML MLS IVP ONE ×2 (20:37→21:15)
[2022-02-11 20:40] LABS: ABG Base Excess -10 mEq/L (-2 to 3); ABG HCO3 16 mEq/L (21-27); ABG Oxygen Saturation 100 % (95-98); ABG PCO2 31 mmHg (35-45); ABG PH 7.31 pH Units (7.32-7.45); ABG PO2 356 mmHg (85-104); ABG TCO2 16 mEq/L (20-26)
[2022-02-11] MEDS ORDERED: *HR* Norepinephrine 4 MG/4 ML VIAL IVC ONE (20:47)
[2022-02-11] MEDS ORDERED: 0.9 % Sodium Chloride 250 ML ONE (20:47)
[2022-02-11 20:49] LABS: Basophils # 0.1 K/mcL (0.0-0.2); Basophils % 0.4 %; Eosinophils % 0.2 %; Hematocrit 38.6 % (37.5-50.1); Hemoglobin 12.5 g/dL (12.9-16.9); Immature Granulocytes % 1.4 % (0-4); Lymphocytes # 2.5 K/mcL (0.6-4.6); Mean Corpuscular HGB Conc 32.4 g/dL (31.6-35.5); Mean Corpuscular Hemoglobin 30.6 pg (28.0-33.3); Mean Corpuscular Volume 94.4 fL (83.0-100.0); Mean Platelet Volume 9.6 fL (9.4-12.4); Monocytes # 1.1 K/mcL (0.0-1.3); Monocytes % 6.3 %; Nucleated Red Blood Cells 0.2 /100 WBC (0); Platelet Count 264 K/mcL (140-400); Red Blood Count 4.09 M/mcL (4.19-5.50); Red Cell Distribution Width 14.7 % (11.5-14.5); Segmented Neutrophils % 76.7 %; White Blood Count 16.9 K/mcL (4.3-11.1)
[2022-02-11] MEDS ORDERED: 0.9 % Sodium Chloride 1,000 ML IV ONE ×2 (20:50→21:14)
[2022-02-11] MEDS ORDERED: methylPREDNISolone 125 MG/2 ML VIAL IVP ONE (20:51)
[2022-02-11] MEDS ORDERED: Ipratropium/Albuterol Neb 3 ML IH ONE (20:51)
[2022-02-11] MEDS: Norepinephrine 4 MG/254 ML IV.SOLN IVC SCH (20:54)
[2022-02-11 20:59] LABS: INR 1.1; Prothrombin Time 12.8 Seconds (9.4-12.1)
[2022-02-11 21:02] LABS: Activated Partial Thrombo Time 30.1 Seconds (26.0-36.0)
[2022-02-11 21:12] LABS: Alanine Aminotransferase 32 Units/L (7-52); Albumin 3.3 g/dL (3.5-5.7); Albumin/Globulin Ratio 1.2 (1.1-2.2); Alkaline Phosphatase 66 Units/L (34-104); Aspartate Amino Transferase 16 Units/L (13-39); BUN/Creatinine Ratio 15 (6-26); Bilirubin,Direct 0.1 mg/dL (0.0-0.2); Bilirubin,Indirect 0.3 mg/dL (0.0-1.0); Bilirubin,Total 0.4 mg/dL (0.3-1.0); Blood Urea Nitrogen 63 mg/dL (6-20); Calcium 8.2 mg/dL (8.6-10.3); Carbon Dioxide 13 mEq/L (23-29); Chloride 104 mEq/L (98-107); Globulin 2.8 g/dL (2.4-3.5); Glucose 108 mg/dL (70-105); Osmolality,Calculated 297 (280-300); Potassium 4.4 mEq/L (3.5-5.1); Sodium 134 mEq/L (136-145); Total Protein 6.1 g/dL (6.4-8.9); Troponin I 0.03 ng/mL (< 0.04); eGFR For African Americans 18 (> 60); eGFR For Non-African Americans 15 (> 60)
[2022-02-11] MEDS ORDERED: Azithromycin 500 MG in 0.9 % Sodium Chloride 250 ML IVPB ONE (21:12)
[2022-02-11 21:16] LABS: Platelet Estimate Normal (Normal)
[2022-02-11 21:45] LABS: Influenza A PCR Negative (Negative); Influenza B PCR Negative (Negative); Resp. Syncytial Virus PCR Negative (Negative)
[2022-02-11 21:50] LABS: SARS-CoV-2 by PCR (In House) Negative (Negative)
[2022-02-11] MEDS ORDERED: Pantoprazole 40 MG VIAL IVP ONE (22:05)
[2022-02-11] MEDS ORDERED: Ondansetron ODT 4 MG TAB.RAPDIS SL PRN (22:57)
[2022-02-11] MEDS ORDERED: Naloxone 0.4 MG/ML INJ IVP PRN (22:57)
[2022-02-11] MEDS ORDERED: Melatonin 3 MG TABLET PO PRN (22:57)
[2022-02-11 23:48] LABS: Creatine Kinase 25 Units/L (30-223); Ethanol < 10 mg/dL (Less than 10)
[2022-02-12] MEDS ORDERED: 0.9 % Sodium Chloride 1,000 ML IVC SCH ×3 (01:00→01:06)
[2022-02-12] MEDS ORDERED: Morphine Sulfate 2 MG/ML SYRINGE IVP ONE (01:17)
[2022-02-12] MEDS: Norepinephrine 4 MG/254 ML IV.SOLN IVC SCH ×3 (01:18→10:48)
[2022-02-12 04:24] LABS: Alanine Aminotransferase 28 Units/L (7-52); Albumin 3.1 g/dL (3.5-5.7); Albumin/Globulin Ratio 1.3 (1.1-2.2); Alkaline Phosphatase 52 Units/L (34-104); Aspartate Amino Transferase 14 Units/L (13-39); BUN/Creatinine Ratio 16 (6-26); Bilirubin,Total 0.2 mg/dL (0.3-1.0); Blood Urea Nitrogen 65 mg/dL (6-20); Calcium 7.4 mg/dL (8.6-10.3); Carbon Dioxide 15 mEq/L (23-29); Chloride 105 mEq/L (98-107); Globulin 2.4 g/dL (2.4-3.5); Glucose 140 mg/dL (70-105); Magnesium 1.2 mg/dL (1.6-2.6); Osmolality,Calculated 299 (280-300); Phosphorous 7.5 mg/dL (2.7-4.5); Potassium 5.2 mEq/L (3.5-5.1); Sodium 134 mEq/L (136-145); Total Protein 5.5 g/dL (6.4-8.9); Troponin I < 0.03 ng/mL (< 0.04); eGFR For African Americans 19 (> 60); eGFR For Non-African Americans 15 (> 60)
[2022-02-12 04:33] LABS: Hematocrit 36.6 % (37.5-50.1); Hemoglobin 11.4 g/dL (12.9-16.9); Mean Corpuscular HGB Conc 31.1 g/dL (31.6-35.5); Mean Corpuscular Hemoglobin 29.8 pg (28.0-33.3); Mean Corpuscular Volume 95.6 fL (83.0-100.0); Mean Platelet Volume 9.8 fL (9.4-12.4); Nucleated Red Blood Cells 0.2 /100 WBC (0); Platelet Count 272 K/mcL (140-400); Red Blood Count 3.83 M/mcL (4.19-5.50); Red Cell Distribution Width 14.8 % (11.5-14.5); White Blood Count 23.7 K/mcL (4.3-11.1)
[2022-02-12 04:38] LABS: Thyroid Stimulating Hormone 1.022 mcIU/mL (0.340-5.600)
[2022-02-12 04:38] LABS: Creatinine,Urine 72 mg/dL
[2022-02-12 04:43] LABS: Bilirubin,Urine Negative (Negative); Blood,Urine Small (Negative); Clarity,Urine Clear (Clear); Color,Urine Light-Yellow (Yellow); Glucose,Urine (UA) Normal (Normal); Hyaline Casts,Urine Few per lpf (None Seen); Ketones,Urine Negative (Negative); Leukocyte Esterase,Urine Negative (Negative); Mucus,Urine Few per lpf (None-Few); Nitrite,Urine Negative (Negative); PH,Urine 5.5 pH Units (5.0-8.0); Protein,Urine 30 mg/dL (Neg-Trace); RBC,Urine 0-3 per hpf (0-3); Specific Gravity,Urine 1.018 (1.010-1.025); Squamous Epithelial Cell,Urine Few per hpf (None-Few); Urobilinogen,Urine Normal (Normal); WBC,Urine 0-3 per hpf (0-3)
[2022-02-12 04:43] LABS: Amphetamine Screen,Urine Negative ng/mL (Cutoff=1000); Barbiturate Screen,Urine Negative ng/mL (Cutoff=200); Benzodiazepines Screen,Urine Negative ng/mL (Cutoff=200); Cannabinoid Screen,Urine Negative ng/mL (Cutoff = 50); Cocaine Screen,Urine Negative ng/mL (Cutoff= 300); Opiate Screen,Urine Negative ng/mL (Cutoff=300); Phencyclidine Screen,Urine Negative ng/mL (Cutoff=25)
[2022-02-12] MEDS ORDERED: *HR* Dextrose 50 % in Water (Syg) 50 ML SYRINGE IVP ONE (04:51)
[2022-02-12] MEDS ORDERED: Albuterol 2.5 MG/3 ML NEBULIZER IH ONE (04:51)
[2022-02-12] MEDS ORDERED: Magnesium Sulfate 1 GM/102 ML PIGGYBACK IVPB ONE (04:51)
[2022-02-12] MEDS ORDERED: Insulin Human Regular 10 UNIT in 0.9 % Sodium Chloride 10 ML IV ONE (04:51)
[2022-02-12 05:27] LABS: Lymphocytes # 2.4 K/mcL (0.6-4.6); Monocytes # 2.4 K/mcL (0.0-1.3); Platelet Estimate Normal (Normal)
[2022-02-12] MEDS: *HR* Heparin 5,000 UNIT/ML VIAL SQ SCH ×2 (05:54→17:20)
[2022-02-12] MEDS: MethylPREDNISolone 40 MG/ML VIAL IVP SCH ×2 (07:47→15:39)
[2022-02-12] MEDS: Nicotine 21 MG PATCH.TD24 TD SCH (07:48)
[2022-02-12] MEDS: Aspirin 81 MG TAB.CHEW PO SCH (07:49)
[2022-02-12] MEDS ORDERED: 0.9 % Sodium Chloride 1,000 ML ONE ×2 (10:43→13:07)
[2022-02-12] MEDS: cefTRIAXone 2,000 MG in 0.9 % Sodium Chloride 10 ML IVP SCH (10:46)
[2022-02-12] MEDS: Ipratropium/Albuterol Neb 3 ML IH SCH ×4 (11:07→23:35)
[2022-02-12] MEDS ORDERED: Acetaminophen 650 MG RECTAL SUPP RC ONE (11:24)
[2022-02-12 12:00] LABS: Potassium 4.6 mEq/L (3.5-5.1)
[2022-02-12] MEDS ORDERED: Acetaminophen 325 MG TABLET PO ONE (12:05)
[2022-02-12] MEDS ORDERED: cefTRIAXone 1,000 MG in 0.9 % Sodium Chloride 10 ML IVP SCH (20:00)
[2022-02-12] MEDS ORDERED: Azithromycin 500 MG in 0.9 % Sodium Chloride 250 ML IVPB SCH (20:00)
[2022-02-12] MEDS: *HR* Buprenorphine HCl 8 MG TAB.SUBL SL SCH (20:08)
[2022-02-12] MEDS: Budesonide/Formoterol 160/4.5 1 PUFF INH IH SCH (20:11)
[2022-02-12] MEDS ORDERED: Acetaminophen 325 MG TABLET PO PRN (20:41)
[2022-02-13] MEDS: MethylPREDNISolone 40 MG/ML VIAL IVP SCH ×3 (00:05→17:31)
[2022-02-13] MEDS: Norepinephrine 4 MG/254 ML IV.SOLN IVC SCH ×5 (00:09→19:29)
[2022-02-13 04:16] LABS: Mean Platelet Volume 9.7 fL (9.4-12.4); Nucleated Red Blood Cells 0.1 /100 WBC (0); Red Blood Count 3.64 M/mcL (4.19-5.50)
[2022-02-13 04:18] LABS: Hematocrit 33.6 % (37.5-50.1); Hemoglobin 10.9 g/dL (12.9-16.9); Mean Corpuscular HGB Conc 32.4 g/dL (31.6-35.5); Mean Corpuscular Hemoglobin 29.9 pg (28.0-33.3); Mean Corpuscular Volume 92.3 fL (83.0-100.0); Platelet Count 202 K/mcL (140-400); White Blood Count 25.5 K/mcL (4.3-11.1)
[2022-02-13 04:19] LABS: VBG Ionized Calcium 0.99 mmol/L (1.15-1.35)
[2022-02-13 04:45] LABS: Lymphocytes # 0.5 K/mcL (0.6-4.6); Platelet Estimate Normal (Normal)
[2022-02-13 04:54] LABS: Albumin 2.9 g/dL (3.5-5.7); Bilirubin,Total 0.2 mg/dL (0.3-1.0); Calcium 7.6 mg/dL (8.6-10.3); Magnesium 1.5 mg/dL (1.6-2.6); Phosphorous 7.1 mg/dL (2.7-4.5); Potassium 4.5 mEq/L (3.5-5.1); Total Protein 5.9 g/dL (6.4-8.9)
[2022-02-13] MEDS: Ipratropium/Albuterol Neb 3 ML IH SCH ×6 (04:57→23:45)
[2022-02-13] MEDS: *HR* Heparin 5,000 UNIT/ML VIAL SQ SCH ×2 (05:19→17:00)
[2022-02-13] MEDS: Calcium Gluconate 1gm/50mL 1 GM/50 ML BAG IVPB SCH ×2 (05:19→06:14)
[2022-02-13] MEDS: Nicotine 21 MG PATCH.TD24 TD SCH (07:39)
[2022-02-13] MEDS: *HR* Buprenorphine HCl 8 MG TAB.SUBL SL SCH ×2 (07:39→21:06)
[2022-02-13] MEDS: Aspirin 81 MG TAB.CHEW PO SCH (07:40)
[2022-02-13] MEDS: Budesonide/Formoterol 160/4.5 1 PUFF INH IH SCH ×2 (07:51→19:36)
[2022-02-13] MEDS: cefTRIAXone 2,000 MG in 0.9 % Sodium Chloride 10 ML IVP SCH (11:00)
[2022-02-13] MEDS ORDERED: Naloxone 0.4 MG/ML INJ IVP PRN (12:45)
[2022-02-13] MEDS ORDERED: Ondansetron ODT 4 MG TAB.RAPDIS SL PRN (12:45)
[2022-02-13] MEDS: Acetaminophen 325 MG TABLET PO PRN ×2 (14:09→21:09)
[2022-02-13] MEDS ORDERED: Nystatin POWDER 30 GM BOTTLE TP SCH (14:16)
[2022-02-13] MEDS ORDERED: MethylPREDNISolone 40 MG/ML VIAL IVP SCH (16:00)
[2022-02-13] MEDS: Nystatin SUSP 5 ML UD.LIQ BC SCH ×2 (16:59→21:06)
[2022-02-13] MEDS ORDERED: Melatonin 3 MG TABLET PO PRN (21:00)
[2022-02-14] MEDS: Azithromycin 500 MG in 0.9 % Sodium Chloride 250 ML IVPB SCH ×2 (00:01→20:55)
[2022-02-14] MEDS: Ipratropium/Albuterol Neb 3 ML IH SCH ×6 (04:00→22:58)
[2022-02-14] MEDS: Norepinephrine 4 MG/254 ML IV.SOLN IVC SCH (04:51)
[2022-02-14 05:50] LABS: VBG Ionized Calcium 1.15 mmol/L (1.15-1.35)
[2022-02-14 05:57] LABS: Basophils % 0.2 %
[2022-02-14 05:58] LABS: Hematocrit 31.1 % (37.5-50.1); Hemoglobin 10.3 g/dL (12.9-16.9); Immature Granulocytes % 0.8 % (0-4); Lymphocytes # 0.7 K/mcL (0.6-4.6); Lymphocytes % 2.8 %; Mean Corpuscular HGB Conc 33.1 g/dL (31.6-35.5); Mean Corpuscular Hemoglobin 30.7 pg (28.0-33.3); Mean Corpuscular Volume 92.6 fL (83.0-100.0); Monocytes % 3.9 %; Neutrophils # 23.2 K/mcL (1.6-8.9); Nucleated Red Blood Cells 0.3 /100 WBC (0); Platelet Count 172 K/mcL (140-400); Red Blood Count 3.36 M/mcL (4.19-5.50); Red Cell Distribution Width 14.9 % (11.5-14.5); Segmented Neutrophils % 92.3 %; White Blood Count 25.1 K/mcL (4.3-11.1)
[2022-02-14 06:04] LABS: Basophils # 0.1 K/mcL (0.0-0.2)
[2022-02-14 06:14] LABS: Albumin 2.9 g/dL (3.5-5.7); Bilirubin,Total 0.2 mg/dL (0.3-1.0); Calcium 8.5 mg/dL (8.6-10.3); Globulin 2.9 g/dL (2.4-3.5); Magnesium 2.4 mg/dL (1.6-2.6); Phosphorous 6.7 mg/dL (2.7-4.5); Potassium 3.5 mEq/L (3.5-5.1); Total Protein 5.8 g/dL (6.4-8.9)
[2022-02-14] MEDS: *HR* Heparin 5,000 UNIT/ML VIAL SQ SCH ×2 (06:18→17:51)
[2022-02-14] MEDS: MethylPREDNISolone 40 MG/ML VIAL IVP SCH ×2 (06:19→17:52)
[2022-02-14] MEDS: Budesonide/Formoterol 160/4.5 1 PUFF INH IH SCH ×2 (07:06→19:53)
[2022-02-14] MEDS: Nystatin SUSP 5 ML UD.LIQ BC SCH ×4 (09:16→20:56)
[2022-02-14] MEDS: *HR* Buprenorphine HCl 8 MG TAB.SUBL SL SCH ×2 (09:17→20:57)
[2022-02-14] MEDS: Aspirin 81 MG TAB.CHEW PO SCH (09:17)
[2022-02-14] MEDS: Nicotine 21 MG PATCH.TD24 TD SCH ×2 (09:18→12:14)
[2022-02-14] MEDS ORDERED: cefTRIAXone 2,000 MG in 0.9 % Sodium Chloride 10 ML IVP SCH (11:00)
[2022-02-14] MEDS: cefTRIAXone 2,000 MG in 0.9 % Sodium Chloride 20 ML IVP SCH (12:14)
[2022-02-15] MEDS: Acetaminophen 325 MG TABLET PO PRN (03:08)
[2022-02-15 03:23] LABS: VBG Ionized Calcium 1.17 mmol/L (1.15-1.35)
[2022-02-15 03:45] LABS: Basophils # 0.1 K/mcL (0.0-0.2); Basophils % 0.4 %; Hematocrit 32.2 % (37.5-50.1); Hemoglobin 10.5 g/dL (12.9-16.9); Immature Granulocytes % 2.8 % (0-4); Lymphocytes # 0.7 K/mcL (0.6-4.6); Lymphocytes % 3.4 %; Mean Corpuscular HGB Conc 32.6 g/dL (31.6-35.5); Mean Corpuscular Hemoglobin 29.7 pg (28.0-33.3); Mean Platelet Volume 10.4 fL (9.4-12.4); Monocytes # 1.2 K/mcL (0.0-1.3); Monocytes % 5.7 %; Neutrophils # 18.2 K/mcL (1.6-8.9); Nucleated Red Blood Cells 0.8 /100 WBC (0); Platelet Count 182 K/mcL (140-400); Red Blood Count 3.54 M/mcL (4.19-5.50); Red Cell Distribution Width 14.7 % (11.5-14.5); Segmented Neutrophils % 87.7 %; White Blood Count 20.8 K/mcL (4.3-11.1)
[2022-02-15 04:04] LABS: Albumin 3.1 g/dL (3.5-5.7); Bilirubin,Total 0.2 mg/dL (0.3-1.0); Calcium 8.7 mg/dL (8.6-10.3); Globulin 3.1 g/dL (2.4-3.5); Magnesium 2.2 mg/dL (1.6-2.6); Phosphorous 4.8 mg/dL (2.7-4.5); Potassium 2.9 mEq/L (3.5-5.1); Total Protein 6.2 g/dL (6.4-8.9)
[2022-02-15] MEDS: Ipratropium/Albuterol Neb 3 ML IH SCH ×4 (04:12→16:17)
[2022-02-15] MEDS: *HR* Heparin 5,000 UNIT/ML VIAL SQ SCH (05:11)
[2022-02-15] MEDS: MethylPREDNISolone 40 MG/ML VIAL IVP SCH (05:11)
[2022-02-15] MEDS: Budesonide/Formoterol 160/4.5 1 PUFF INH IH SCH (07:41)
[2022-02-15] MEDS: Aspirin 81 MG TAB.CHEW PO SCH (07:58)
[2022-02-15] MEDS: *HR* Buprenorphine HCl 8 MG TAB.SUBL SL SCH (07:58)
[2022-02-15] MEDS: Nystatin SUSP 5 ML UD.LIQ BC SCH ×2 (07:58→11:46)
[2022-02-15] MEDS: cefTRIAXone 2,000 MG in 0.9 % Sodium Chloride 20 ML IVP SCH (11:44)
[2022-02-15 16:20] VITALS: PULSE 104; TEMP 98; O2SAT 94
[2022-02-15 16:53] VITALS: BP 132/84
== END 2022-02-15 17:22 | disposition home health service (06) | DRG 871 ==
LOC: EMEROOARM 20:11 → ICNU 22:52 → SUATTDRO 22:52 → ICNU 02-12 00:13 → 2ANU 02-13 12:40
PROVIDERS: ADMIT Student in an Organized Health Care Education/Training Program; ATTEND Family Medicine

== ENCOUNTER 2022-04-07 22:38 | Inpatient (IN) ==
[2022-04-07 23:47] LABS: Basophils # 0.2 K/mcL (0.0-0.2); Basophils % 0.7 %; Eosinophils # 0.1 K/mcL (0.0-0.6); Eosinophils % 0.6 %; Hematocrit 40.8 % (37.5-50.1); Hemoglobin 13.4 g/dL (12.9-16.9); Immature Granulocytes % 2.6 % (0-4); Lymphocytes # 2.6 K/mcL (0.6-4.6); Lymphocytes % 11.5 %; Mean Corpuscular HGB Conc 32.8 g/dL (31.6-35.5); Mean Corpuscular Hemoglobin 29.8 pg (28.0-33.3); Mean Corpuscular Volume 90.9 fL (83.0-100.0); Mean Platelet Volume 10.5 fL (9.4-12.4); Monocytes # 2.7 K/mcL (0.0-1.3); Monocytes % 11.8 %; Neutrophils # 16.5 K/mcL (1.6-8.9); Platelet Count 202 K/mcL (140-400); Red Blood Count 4.49 M/mcL (4.19-5.50); Red Cell Distribution Width 15.3 % (11.5-14.5); Segmented Neutrophils % 72.8 %; White Blood Count 22.7 K/mcL (4.3-11.1)
[2022-04-07 23:56] LABS: Prothrombin Time 11.5 Seconds (9.4-12.1)
[2022-04-07 23:59] LABS: Activated Partial Thrombo Time 40.6 Seconds (26.0-36.0)
[2022-04-08 01:12] LABS: Albumin 3.6 g/dL (3.5-5.7); Bilirubin,Direct 0.1 mg/dL (0.0-0.2); Bilirubin,Indirect 0.2 mg/dL (0.0-1.0); Bilirubin,Total 0.3 mg/dL (0.3-1.0); Calcium 9.9 mg/dL (8.6-10.3); Globulin 3.5 g/dL (2.4-3.5); Potassium 6.4 mEq/L (3.5-5.1); Total Protein 7.1 g/dL (6.4-8.9)
[2022-04-08] MEDS ORDERED: Calcium Gluconate 1gm/50mL 1 GM/50 ML BAG IVPB ONE (01:19)
[2022-04-08 01:30] LABS: Influenza A PCR Negative (Negative); Influenza B PCR Negative (Negative); Resp. Syncytial Virus PCR Negative (Negative)
[2022-04-08] MEDS ORDERED: 0.9 % Sodium Chloride 1,000 ML IVC ONE ×2 (01:33→03:53)
[2022-04-08 01:36] LABS: SARS-CoV-2 by PCR (In House) Positive (Negative)
[2022-04-08] MEDS ORDERED: Insulin Human Regular 10 UNIT in 0.9 % Sodium Chloride 10 ML IV ONE (01:37)
[2022-04-08] MEDS ORDERED: *HR* Dextrose 50 % in Water (Syg) 50 ML SYRINGE IVP ONE (01:38)
[2022-04-08] MEDS ORDERED: Albuterol Neb 1.25 MG/3 ML VIAL IH ONE (01:40)
[2022-04-08] MEDS ORDERED: Albuterol 2.5 MG/3 ML NEBULIZER IH ONE (01:59)
[2022-04-08] MEDS ORDERED: Sodium Bicarbonate 150 MEQ in D5% in Water 1,000 ML IVC SCH (02:15)
[2022-04-08] MEDS ORDERED: D5% in 0.45% NACL 1,000 ML IVC PRN (02:45)
[2022-04-08] MEDS ORDERED: Naloxone 0.4 MG/ML INJ IVP PRN (02:48)
[2022-04-08] MEDS ORDERED: D5% in Water 1,000 ML IVC PRN ×2 (02:50→03:45)
[2022-04-08] MEDS ORDERED: Dextrose Gel 15 GM/37.5 ML TUBE PO PRN ×4 (02:50→03:45)
[2022-04-08] MEDS ORDERED: Insulin LISPRO 300 UNITS/3 ML VIAL SUBQ SCH ×2 (03:00)
[2022-04-08 03:12] LABS: VBG HCO3 8 mEq/L (21-27); VBG PCO2 29 mmHg (41-51); VBG PH 7.03 pH Units (7.32-7.42); VBG PO2 60 mmHg (25-50)
[2022-04-08] MEDS ORDERED: *HR* Dextrose 50 % in Water (Syg) 50 ML SYRINGE IVP PRN (03:45)
[2022-04-08 04:07] LABS: Troponin I 0.05 ng/mL (< 0.04)
[2022-04-08 04:07] LABS: Bilirubin,Urine Negative (Negative); Blood,Urine Small (Negative); Clarity,Urine Clear (Clear); Color,Urine Light-Yellow (Yellow); Glucose,Urine (UA) 30 mg/dL (Normal); Hyaline Casts,Urine Moderate per lpf (None Seen); Ketones,Urine Trace mg/dL (Negative); Leukocyte Esterase,Urine Negative (Negative); Mucus,Urine Few per lpf (None-Few); Nitrite,Urine Negative (Negative); PH,Urine 5.5 pH Units (5.0-8.0); Protein,Urine 70 mg/dL (Neg-Trace); Specific Gravity,Urine 1.015 (1.010-1.025); Squamous Epithelial Cell,Urine Few per hpf (None-Few); Urobilinogen,Urine Normal (Normal)
[2022-04-08] MEDS: Insulin LISPRO 300 UNITS/3 ML VIAL SUBQ SCH ×6 (04:27→21:34)
[2022-04-08 04:31] LABS: Amphetamine Screen,Urine Negative ng/mL (Cutoff=1000); Barbiturate Screen,Urine Negative ng/mL (Cutoff=200); Benzodiazepines Screen,Urine Negative ng/mL (Cutoff=200); Cannabinoid Screen,Urine Negative ng/mL (Cutoff = 50); Cocaine Screen,Urine Negative ng/mL (Cutoff= 300); Opiate Screen,Urine Negative ng/mL (Cutoff=300); Phencyclidine Screen,Urine Negative ng/mL (Cutoff=25)
[2022-04-08] MEDS ORDERED: Potassium Chloride 40 MEQ/200 ML BAG IVPB PRN (05:10)
[2022-04-08 05:45] LABS: Acetaminophen < 10 mcg/mL (10-20); Alanine Aminotransferase 25 Units/L (7-52); Albumin 3.3 g/dL (3.5-5.7); Albumin/Globulin Ratio 1.2 (1.1-2.2); Alkaline Phosphatase 69 Units/L (34-104); Aspartate Amino Transferase 13 Units/L (13-39); BUN/Creatinine Ratio 18 (6-26); Bilirubin,Total 0.3 mg/dL (0.3-1.0); Blood Urea Nitrogen 136 mg/dL (6-20); Calcium 9.6 mg/dL (8.6-10.3); Carbon Dioxide 12 mEq/L (23-29); Chloride 104 mEq/L (98-107); Globulin 2.8 g/dL (2.4-3.5); Glucose 121 mg/dL (70-105); Magnesium 2.1 mg/dL (1.6-2.6); Osmolality,Calculated 329 (280-300); Phosphorous 8.9 mg/dL (2.7-4.5); Potassium 5.5 mEq/L (3.5-5.1); Salicylate < 2.5 mg/dL (15.0-30.0); Sodium 137 mEq/L (136-145); Total Protein 6.1 g/dL (6.4-8.9); Troponin I 0.04 ng/mL (< 0.04)
[2022-04-08] MEDS ORDERED: *HR* Heparin 5,000 UNIT/ML VIAL SQ SCH (06:00)
[2022-04-08] MEDS: cefTRIAXone 1,000 MG in 0.9 % Sodium Chloride 10 ML IVP SCH (07:53)
[2022-04-08 11:40] LABS: VBG HCO3 14 mEq/L (21-27); VBG PCO2 30 mmHg (41-51); VBG PH 7.29 pH Units (7.32-7.42); VBG PO2 187 mmHg (25-50)
[2022-04-08] MEDS: Aspirin 81 MG TAB.CHEW PO SCH (11:41)
[2022-04-08] MEDS: *HR* Buprenorphine HCl 8 MG TAB.SUBL SL SCH (11:41)
[2022-04-08] MEDS: Sodium Bicarbonate 150 MEQ in D5% in Water 1,000 ML IVC SCH ×3 (11:43→23:36)
[2022-04-08 11:58] LABS: Calcium 9.4 mg/dL (8.6-10.3); Potassium 4.9 mEq/L (3.5-5.1)
[2022-04-08] MEDS: *HR* Heparin 5,000 UNIT/ML VIAL SQ SCH ×2 (16:06→23:01)
[2022-04-08] MEDS ORDERED: Albumin 25% 25gram/100mL 25 GM/100 ML IV.SOLN IVPB ONE (17:51)
[2022-04-08] MEDS ORDERED: Ringers Solution, Lactated 500 ML IVC ONE (17:51)
[2022-04-09] MEDS: *HR* Buprenorphine HCl 8 MG TAB.SUBL SL SCH (07:51)
[2022-04-09] MEDS: cefTRIAXone 1,000 MG in 0.9 % Sodium Chloride 10 ML IVP SCH (07:51)
[2022-04-09] MEDS: *HR* Heparin 5,000 UNIT/ML VIAL SQ SCH ×2 (07:51→17:40)
[2022-04-09] MEDS: Insulin LISPRO 300 UNITS/3 ML VIAL SUBQ SCH ×4 (07:52→20:31)
[2022-04-09] MEDS: Aspirin 81 MG TAB.CHEW PO SCH (07:52)
[2022-04-09] MEDS ORDERED: Acetaminophen 325 MG TABLET PO PRN (08:02)
[2022-04-09 08:11] LABS: Albumin 3.1 g/dL (3.5-5.7); Albumin/Globulin Ratio 1.2 (1.1-2.2); Bilirubin,Total 0.4 mg/dL (0.3-1.0); Globulin 2.6 g/dL (2.4-3.5); Magnesium 1.9 mg/dL (1.6-2.6); Potassium 5.7 mEq/L (3.5-5.1); Total Protein 5.7 g/dL (6.4-8.9)
[2022-04-09] MEDS: Sodium Bicarbonate 150 MEQ in D5% in Water 1,000 ML IVC SCH ×2 (09:13→17:40)
[2022-04-09 12:10] LABS: Basophils % 0.3 %; Eosinophils # 0.1 K/mcL (0.0-0.6); Hematocrit 29.2 % (37.5-50.1); Hemoglobin 9.9 g/dL (12.9-16.9); Immature Granulocytes % 1.5 % (0-4); Lymphocytes # 1.5 K/mcL (0.6-4.6); Lymphocytes % 16.9 %; Mean Corpuscular HGB Conc 33.9 g/dL (31.6-35.5); Mean Corpuscular Hemoglobin 29.5 pg (28.0-33.3); Mean Corpuscular Volume 86.9 fL (83.0-100.0); Mean Platelet Volume 10.9 fL (9.4-12.4); Monocytes # 1.2 K/mcL (0.0-1.3); Monocytes % 13.7 %; Neutrophils # 5.9 K/mcL (1.6-8.9); Platelet Count 134 K/mcL (140-400); Red Blood Count 3.36 M/mcL (4.19-5.50); Red Cell Distribution Width 14.6 % (11.5-14.5); Segmented Neutrophils % 66.6 %; White Blood Count 8.8 K/mcL (4.3-11.1)
[2022-04-09] MEDS ORDERED: D5% in Water 1,000 ML IVC PRN (12:15)
[2022-04-09] MEDS ORDERED: *HR* Dextrose 50 % in Water (Syg) 50 ML SYRINGE IVP PRN (12:15)
[2022-04-09] MEDS ORDERED: Naloxone 0.4 MG/ML INJ IVP PRN (12:15)
[2022-04-09] MEDS ORDERED: Dextrose Gel 15 GM/37.5 ML TUBE PO PRN ×4 (12:15)
[2022-04-09 12:20] LABS: Calcium 8.5 mg/dL (8.6-10.3); Potassium 3.4 mEq/L (3.5-5.1)
[2022-04-09] MEDS ORDERED: NON-FORMULARY MEDICATION 1 EACH EACH (Buprenorphine Hcl/Naloxone Hcl [Zubsolv 5.7-1.4 Mg T SL SCH (21:00)
[2022-04-09] MEDS: Acetaminophen 325 MG TABLET PO PRN (21:02)
[2022-04-09] MEDS: Budesonide/Formoterol 160/4.5 1 PUFF INH IH SCH (22:08)
[2022-04-10] MEDS: *HR* Heparin 5,000 UNIT/ML VIAL SQ SCH ×3 (01:33→16:59)
[2022-04-10] MEDS: Sodium Bicarbonate 150 MEQ in D5% in Water 1,000 ML IVC SCH ×2 (02:57→11:08)
[2022-04-10 03:47] LABS: Albumin 2.9 g/dL (3.5-5.7); Albumin/Globulin Ratio 1.3 (1.1-2.2); Basophils % 0.5 %; Bilirubin,Total 0.3 mg/dL (0.3-1.0); Calcium 7.9 mg/dL (8.6-10.3); Eosinophils # 0.1 K/mcL (0.0-0.6); Eosinophils % 2.3 %; Globulin 2.3 g/dL (2.4-3.5); Hematocrit 27.8 % (37.5-50.1); Hemoglobin 9.4 g/dL (12.9-16.9); Immature Granulocytes % 1.5 % (0-4); Lymphocytes # 1.4 K/mcL (0.6-4.6); Lymphocytes % 23.6 %; Magnesium 1.1 mg/dL (1.6-2.6); Mean Corpuscular HGB Conc 33.8 g/dL (31.6-35.5); Mean Corpuscular Hemoglobin 29.6 pg (28.0-33.3); Mean Corpuscular Volume 87.4 fL (83.0-100.0); Mean Platelet Volume 10.8 fL (9.4-12.4); Neutrophils # 3.4 K/mcL (1.6-8.9); Phosphorous 2.9 mg/dL (2.7-4.5); Platelet Count 117 K/mcL (140-400); Potassium 2.8 mEq/L (3.5-5.1); Red Blood Count 3.18 M/mcL (4.19-5.50); Red Cell Distribution Width 14.2 % (11.5-14.5); Segmented Neutrophils % 56.1 %; Total Protein 5.2 g/dL (6.4-8.9); White Blood Count 6.1 K/mcL (4.3-11.1)
[2022-04-10 04:23] LABS: ABG Base Excess 15 mEq/L (-2 to 3); ABG HCO3 39 mEq/L (21-27); ABG Oxygen Saturation 96 % (95-98); ABG PCO2 40 mmHg (35-45); ABG PH 7.59 pH Units (7.32-7.45); ABG PO2 68 mmHg (85-104); ABG TCO2 40 mEq/L (20-26)
[2022-04-10] MEDS: Insulin LISPRO 300 UNITS/3 ML VIAL SUBQ SCH ×4 (07:41→20:33)
[2022-04-10] MEDS: Budesonide/Formoterol 160/4.5 1 PUFF INH IH SCH ×2 (07:49→23:16)
[2022-04-10] MEDS: *HR* Buprenorphine HCl 8 MG TAB.SUBL SL SCH (08:48)
[2022-04-10] MEDS: Aspirin 81 MG TAB.CHEW PO SCH (08:49)
[2022-04-10] MEDS: cefTRIAXone 1,000 MG in 0.9 % Sodium Chloride 10 ML IVP SCH (08:49)
[2022-04-10] MEDS: Acetaminophen 325 MG TABLET PO PRN (09:06)
[2022-04-10] MEDS ORDERED: Magnesium Oxide 400 MG TABLET PO SCH (13:45)
[2022-04-10 15:39] LABS: Estimated Average Glucose 163 mg/dl; Hemoglobin A1C 7.3 %
[2022-04-11] MEDS: *HR* Heparin 5,000 UNIT/ML VIAL SQ SCH ×3 (05:15→13:21)
[2022-04-11 05:51] LABS: Basophils # 0.1 K/mcL (0.0-0.2); Basophils % 0.7 %; Eosinophils # 0.2 K/mcL (0.0-0.6); Eosinophils % 2.8 %; Hematocrit 31.3 % (37.5-50.1); Hemoglobin 10.1 g/dL (12.9-16.9); Immature Granulocytes % 1.4 % (0-4); Lymphocytes # 1.2 K/mcL (0.6-4.6); Mean Corpuscular HGB Conc 32.3 g/dL (31.6-35.5); Mean Corpuscular Hemoglobin 29.5 pg (28.0-33.3); Mean Corpuscular Volume 91.5 fL (83.0-100.0); Mean Platelet Volume 10.2 fL (9.4-12.4); Monocytes # 1.1 K/mcL (0.0-1.3); Monocytes % 14.7 %; Neutrophils # 4.6 K/mcL (1.6-8.9); Platelet Count 123 K/mcL (140-400); Red Blood Count 3.42 M/mcL (4.19-5.50); Red Cell Distribution Width 14.4 % (11.5-14.5); Segmented Neutrophils % 63.4 %; White Blood Count 7.2 K/mcL (4.3-11.1)
[2022-04-11 06:29] LABS: Chol/HDL Ratio 3.5 (0-4.9)
[2022-04-11 06:42] LABS: Albumin/Globulin Ratio 1.3 (1.1-2.2); Bilirubin,Total 0.4 mg/dL (0.3-1.0); Calcium 8.5 mg/dL (8.6-10.3); Globulin 2.3 g/dL (2.4-3.5); Magnesium 1.5 mg/dL (1.6-2.6); Phosphorous 2.4 mg/dL (2.7-4.5); Potassium 3.5 mEq/L (3.5-5.1); Total Protein 5.3 g/dL (6.4-8.9)
[2022-04-11] MEDS: Budesonide/Formoterol 160/4.5 1 PUFF INH IH SCH (07:58)
[2022-04-11] MEDS: Aspirin 81 MG TAB.CHEW PO SCH (08:04)
[2022-04-11] MEDS: *HR* Buprenorphine HCl 8 MG TAB.SUBL SL SCH (08:05)
[2022-04-11] MEDS: cefTRIAXone 1,000 MG in 0.9 % Sodium Chloride 10 ML IVP SCH (08:08)
[2022-04-11] MEDS ORDERED: Magnesium Oxide 400 MG TABLET PO SCH (09:00)
[2022-04-11] MEDS: Insulin LISPRO 300 UNITS/3 ML VIAL SUBQ SCH ×3 (09:49→17:34)
[2022-04-11 11:59] VITALS: PULSE 92
[2022-04-11] MEDS ORDERED: FLUoxetine 20 MG CAPSULE PO SCH (15:15)
[2022-04-11 16:38] VITALS: BP 116/70; TEMP 97.9
[2022-04-11 17:03] VITALS: O2SAT 98
[2022-04-12 07:23] LABS: Urine Collection Volume NOT PROVIDED mL
== END 2022-04-11 18:45 | disposition home or self-care (01) | DRG 682 ==
LOC: ICNU 22:38 → EMEROOARM 22:38 → OBSVTOIN 04-08 02:56 → ICNU 04-08 03:45 → 3ANU 04-09 13:40
PROVIDERS: ADMIT Emergency Medicine; ATTEND Emergency Medicine